=== PATIENT | female | born 1965 | race African-American/Black ===

== ENCOUNTER 2017-04-11 04:46 | Emergency (ER) | payer OTHER ==
[~2017-04-11] VITALS: Ht 182.9 cm; Wt 131.0 kg
[2017-04-11] MEDS: NITROGLYCERIN 0.4MG TABLET SL SL PRN (07:11)
[2017-04-11] MEDS: ASPIRIN 81MG TABLET PO STA (07:11)
[2017-04-11 07:14] LABS: INR 1.1; PARTIAL THROMBOPLASTIN TIME 28.2 sec (23.4-31.0); PROTHROMBIN TIME 10.9 sec (9.4-11.6)
[2017-04-11 07:15] LABS: BASOPHILS % 0.5 % (0.0-2.0); EOSINOPHILS % 1.6 % (0.0-5.0); HEMATOCRIT. 35.9 % (36.0-48.0); HEMOGLOBIN. 11.4 g/dL (12.0-16.0); LYMPHOCYTES % 40.6 % (20.0-50.0); MEAN CORPUSCULAR VOLUME 75.6 fL (81.0-99.0); MEAN PLATELET VOLUME 7.8 fl (7.4-10.4); NEUTROPHILS % 49.3 % (40.0-76.0); PLATELET 219 x1000/uL (130-400); RED BLOOD CELL COUNT 4.75 mill/uL (4.2-5.4)
[2017-04-11 07:27] LABS: CARBON DIOXIDE 27 mEq/L (21-32); CHLORIDE 107 mEq/L (98-107)
[2017-04-11 07:31] LABS: TROPONIN I < 0.02 ng/mL (0.00-0.04)
[2017-04-11 09:09] VITALS: BP 127/69
== END 2017-04-11 09:38 | disposition left against medical advice (07) ==
LOC: ER 04:46 → CANBEDREQ 10:08
DX: R07.2 Precordial pain (principal); R06.02 Shortness of breath; R11.0 Nausea; I10 Essential (primary) hypertension; Z88.5 Allergy status to narcotic agent
CPT/HCPCS: 36415; 71010; 80053; 84484; 85025; 85610; 85730; 93005; 99285